=== PATIENT | female | born 1970 | race Hispanic/Latino ===

== ENCOUNTER 2017-05-06 09:20 | Inpatient (IN) | payer OTHER ==
[2017-05-06] VITALS (19 sets, daily range): BP systolic 120–164; BP diastolic 64–94
[2017-05-06] MEDS ORDERED: ACETAMINOPHEN-CODEINE ELIXIR 5 ML UDCUP ONE (09:46)
[2017-05-06 10:01] LABS: BASOPHILS % (AUTO) 0.7 % (0.0-5.0); EOSINOPHILS % (AUTO) 1.7 % (0.0-8.0); HEMATOCRIT 32.3 % (36-48); LYMPHOCYTES % (AUTO) 15.9 % (21.0-51.0); MEAN CORPUSCULAR HEMOGLOBIN 26.2 pg (27.0-33.0); MEAN CORPUSCULAR VOLUME 79.2 fL (79-99); MONOCYTES % (AUTO) 7.1 % (3.0-13.0); NEUTROPHILS % (AUTO) 74.6 % (40.0-77.0); PLATELET COUNT (AUTO) 451 K/uL (130-400); RED BLOOD CELL COUNT(AUTO) 4.08 MIL/uL (4.00-5.50); RED CELL DISTRIBUTION WIDTH 18.2 % (11.0-15.5); WHITE BLOOD COUNT (AUTO) 8.3 K/uL (4.8-10.8)
[2017-05-06 10:07] LABS: CREATININE 0.6 mg/dL (0.5-1.5); POTASSIUM 4.2 mmol/L (3.5-5.1)
[2017-05-06 10:11] LABS: ALBUMIN 3.5 g/dL (3.5-5.0); BILIRUBIN,TOTAL 0.5 mg/dL (0.2-1.0); TOTAL PROTEIN, SERUM 7.3 g/dL (6.0-8.3)
[2017-05-06 10:13] LABS: APPEARANCE,URINE Clear (CLEAR); BILIRUBIN,URINE Negative (NEGATIVE); COLOR,URINE Yellow (YELLOW); GLUCOSE, URINE (UA) Negative (NEGATIVE); KETONES,URINE Negative (NEGATIVE); LEUKOCYTE ESTERASE ,URINE Negative (NEGATIVE); NITRATE,URINE Negative (NEGATIVE); OCCULT BLOOD,URINE Negative (NEGATIVE); PROTEIN,URINE Negative (NEGATIVE); UROBILINOGEN,URINE 0.2 mg/dL (0.2-1.0)
[2017-05-06] MEDS ORDERED: MORPHINE SULFATE 4 MG/1ML SYG ONE (11:42)
[2017-05-06] MEDS ORDERED: SODIUM CHLORIDE 0.9% 1000ML 1,000 ML IV ONE (11:42)
[2017-05-06] MEDS ORDERED: LACTATED RINGERS 1000ML 1,000 ML IV ONE (12:04)
[2017-05-06] MEDS ORDERED: CEFAZOLIN SODIUM 1 GM VIAL ONE (12:09)
[2017-05-06] MEDS: CEFAZOLIN SODIUM 1 GM VIAL IVP SCH ×2 (12:15→12:45)
[2017-05-06] MEDS ORDERED: DEXAMETHASONE SOD PHOSPHATE 10MG/ML 1ML VIAL ONE (12:36)
[2017-05-06] MEDS ORDERED: GLYCOPYRROLATE 0.2 MG/ML 5 ML VIAL ONE (12:36)
[2017-05-06] MEDS ORDERED: ONDANSETRON HCL 4 MG/2 ML VIAL ONE (12:36)
[2017-05-06] MEDS ORDERED: NEOSTIGMINE METHYLSULFATE 1MG/ML IV ONE (12:36)
[2017-05-06] MEDS ORDERED: LIDOCAINE PF 2% 5ML ABBOJECT ONE (12:36)
[2017-05-06] MEDS ORDERED: FENTANYL CITRATE PF 50 MCG/1 ML 2ML VIAL ONE (12:37)
[2017-05-06] MEDS ORDERED: MIDAZOLAM HCL 1 MG/ML 2ML VIAL ONE (12:37)
[2017-05-06] MEDS ORDERED: FENTANYL CITRATE PF 50 MCG/1 ML 5ML AMP IV ONE (13:00)
[2017-05-06] MEDS ORDERED: SIMETHICONE 80 MG TAB.CHEW PO PRN (15:00)
[2017-05-06] MEDS ORDERED: HYDROCODONE/ACETAMINOPHEN 5/325 MG TAB PO PRN ×2 (15:00)
[2017-05-06] MEDS ORDERED: ONDANSETRON HCL 4 MG/2 ML VIAL IV PRN (15:00)
[2017-05-06] MEDS ORDERED: BISACODYL 10 MG SUPP.RECT RC PRN (15:00)
[2017-05-06] MEDS ORDERED: NALOXONE HCL 0.4 MG/1 ML ML IVP PRN (15:00)
[2017-05-06] MEDS ORDERED: DIPHENHYDRAMINE HCL 25 MG CAPSULE PO PRN (15:00)
[2017-05-06] MEDS ORDERED: MEPERIDINE-PF 75 MG/ML SYG IM PRN (15:00)
[2017-05-06] MEDS ORDERED: DiphenhydrAMINE HCL 50 MG/ML VIAL IV PRN (15:00)
[2017-05-06] MEDS ORDERED: MEPERIDINE 10MG/ML 50ML PCA 50 ML IV PRN (15:00)
[2017-05-06] MEDS ORDERED: PROMETHAZINE HCL 25 MG/ML 1ML AMPULE IM PRN ×2 (15:00)
[2017-05-06] MEDS ORDERED: DOCUSATE SODIUM 100 MG CAP PO PRN ×2 (15:00)
[2017-05-06] MEDS ORDERED: MEPERIDINE-PF 50 MG/ML SYG ONE (15:05)
[2017-05-06] MEDS: DEXTROSE 5 %-0.45 % NACL 1,000 ML IV PRN (21:25)
[2017-05-06] MEDS ORDERED: CALDOLOR 800MG+NS 250ML 250 ML IVPB SCH (23:00)
[2017-05-07 04:25] VITALS: BP 114/62
[2017-05-07] MEDS: DEXTROSE 5 %-0.45 % NACL 1,000 ML IV PRN (04:42)
[2017-05-07 06:42] LABS: HEMATOCRIT 29.8 % (36-48); MEAN CORPUSCULAR HEMOGLOBIN 26.8 pg (27.0-33.0); MEAN CORPUSCULAR HGB CONC 33.5 g/dL (32.0-36.0); MEAN CORPUSCULAR VOLUME 79.9 fL (79-99); PLATELET COUNT (AUTO) 410 K/uL (130-400); RED BLOOD CELL COUNT(AUTO) 3.73 MIL/uL (4.00-5.50); WHITE BLOOD COUNT (AUTO) 13.7 K/uL (4.8-10.8)
[2017-05-07 07:27] VITALS: BP 123/64
[2017-05-07] MEDS: SIMETHICONE 80 MG TAB.CHEW PO PRN ×2 (08:13→13:47)
[2017-05-07] MEDS: ACETAMINOPHEN-CODEINE 300/30MG TAB PO PRN ×2 (08:15→13:49)
[2017-05-07 11:10] VITALS: BP 113/70
[2017-05-07] MEDS ORDERED: IBUPROFEN 800 MG TAB PO SCH (15:00)
[2017-05-07 15:24] VITALS: BP 120/83
[2017-05-07] MEDS ORDERED: DOCU-116 PO (17:10)
[2017-05-07] MEDS ORDERED: TYL3 PO (17:11)
== END 2017-05-07 17:40 | disposition home or self-care (01) | DRG 743 ==
LOC: EDH 09:20 → EDHIP 11:29 → OBSVTOIN 11:29 → WSH 16:11
PROVIDERS: ADMIT Obstetrics & Gynecology; ATTEND Obstetrics & Gynecology
PROC: 0UT90ZZ Resection of Uterus, Open Approach (ICD-10-PCS; principal; 2017-05-06 12:35)
PROC: 0UT10ZZ Resection of Left Ovary, Open Approach (ICD-10-PCS; 2017-05-06 12:35)
PROC: 0UT60ZZ Resection of Left Fallopian Tube, Open Approach (ICD-10-PCS; 2017-05-06 12:35)
DX: N92.1 Excessive and frequent menstruation with irregular cycle (principal); G89.29 Other chronic pain; N73.6 Female pelvic peritoneal adhesions (postinfective); R10.2 Pelvic and perineal pain
CPT/HCPCS: 36415; 80053; 81003; 81025; 85025; 85027; 86850; 86900; 86901; 88307; A4218; A4344; J0690; J1100; J1741; J2001; J2175; J2250; J2270; J2405; J2710; J3010; J3490; J7030; J7120

== ENCOUNTER 2018-08-03 00:40 | Emergency (ER) | payer OTHER ==
[~2018-08-03 00:40] MED LIST: DOCU-116 PO; TYL3 PO
== END 2018-08-03 01:32 | disposition home or self-care (01) ==
LOC: EDH 00:40
DX: M54.2 Cervicalgia (principal); J45.909 Unspecified asthma, uncomplicated; Z88.1 Allergy status to other antibiotic agents; Z88.6 Allergy status to analgesic agent; Z90.710 Acquired absence of both cervix and uterus; Y04.2XXA Assault by strike against or bumped into by another person, initial encounter; Y93.89 Activity, other specified; Y92.89 Other specified places as the place of occurrence of the external cause; Y99.8 Other external cause status
CPT/HCPCS: 99281

== ENCOUNTER 2020-12-10 10:31 | Emergency (ER) | payer BC, OTHER ==
[~2020-12-10] VITALS: Ht 160 cm; Wt 79.4 kg
[2020-12-10 10:32] VITALS: BP 122/56
[2020-12-10] MEDS ORDERED: DiphenhydrAMINE HCL 50 MG/ML VIAL ONE (10:56)
[2020-12-10] MEDS ORDERED: SOLU-MEDROL 125MG VIAL ONE (10:56)
[2020-12-10] MEDS ORDERED: SOLU-MEDROL 125MG VIAL IVP ONE (11:30)
[2020-12-10] MEDS ORDERED: DiphenhydrAMINE HCL 50 MG/ML VIAL IV ONE (11:30)
[2020-12-10] MEDS ORDERED: PRED20TA3 PO (12:26)
[2020-12-10] MEDS ORDERED: DIPH50 PO (12:26)
== END 2020-12-10 12:47 | disposition home or self-care (01) ==
LOC: EDH 10:31
DX: L50.0 Allergic urticaria (principal); T50.995A Adverse effect of other drugs, medicaments and biological substances, initial encounter; E66.9 Obesity, unspecified; J45.909 Unspecified asthma, uncomplicated; Z79.52 Long term (current) use of systemic steroids; Z79.899 Other long term (current) drug therapy; Z88.1 Allergy status to other antibiotic agents; Z88.6 Allergy status to analgesic agent; Z68.31 Body mass index [BMI] 31.0-31.9, adult; Y92.89 Other specified places as the place of occurrence of the external cause
CPT/HCPCS: 96374; 96375; 99284; J1200; J2930

== ENCOUNTER 2022-05-08 15:34 | Emergency (ER) | payer BC ==
[~2022-05-08] VITALS: Ht 160 cm; Wt 79.4 kg
[~2022-05-08 15:34] MED LIST changes: +DIPH50 PO; +PRED20TA3 PO
[2022-05-08] MEDS ORDERED: 0.9%NACL 1000ML 1,000 ML IV ONE (17:00)
[2022-05-08 17:20] LABS: BASOPHILS % (AUTO) 0.8 % (0.0-5.0); EOSINOPHILS % (AUTO) 3.1 % (0.0-8.0); HEMATOCRIT 43.4 % (36-48); LYMPHOCYTES % (AUTO) 20.6 % (21.0-51.0); MEAN CORPUSCULAR HEMOGLOBIN 27.9 pg (27.0-33.0); MEAN CORPUSCULAR HGB CONC 32.5 g/dL (32.0-36.0); MEAN CORPUSCULAR VOLUME 85.8 fL (79-99); MONOCYTES % (AUTO) 5.7 % (3.0-13.0); NEUTROPHILS % (AUTO) 69.5 % (40.0-77.0); PLATELET COUNT (AUTO) 278 K/uL (130-400); RED BLOOD CELL COUNT(AUTO) 5.06 MIL/uL (4.00-5.50); RED CELL DISTRIBUTION WIDTH 13.1 % (11.0-15.5); WHITE BLOOD COUNT (AUTO) 9.5 K/uL (4.8-10.8)
[2022-05-08 17:24] LABS: APPEARANCE,URINE CLEAR (CLEAR); BILIRUBIN,URINE NEGATIVE (NEGATIVE); COLOR,URINE LIGHT-YELLOW (YELLOW); GLUCOSE, URINE (UA) NEGATIVE (NEGATIVE); KETONES,URINE NEGATIVE (NEGATIVE); LEUKOCYTE ESTERASE ,URINE NEGATIVE Leu/uL (NEGATIVE); NITRATE,URINE NEGATIVE (NEGATIVE); OCCULT BLOOD,URINE NEGATIVE (NEGATIVE); PH,URINE 5.5 (5.0-8.0); PROTEIN,URINE NEGATIVE (NEGATIVE); UROBILINOGEN,URINE 0.2 mg/dL (0.2-1.0)
[2022-05-08 17:36] LABS: BACTERIA,URINE RARE /HPF (None Seen); MUCUS,URINE RARE LPF (None Seen); SQUAMOUS EPITHELIAL CELL,UR RARE /HPF (0-2); WBC,URINE 0-1 /HPF (0-1)
[2022-05-08 18:33] LABS: CREATININE 0.7 mg/dL (0.5-1.5); POTASSIUM 4.2 mmol/L (3.5-5.1)
[2022-05-08 18:37] LABS: ALBUMIN 3.8 g/dL (3.5-5.0); TOTAL PROTEIN, SERUM 7.3 g/dL (6.0-8.3)
[2022-05-08] MEDS ORDERED: PANT40TA55 PO (19:12)
== END 2022-05-08 19:24 | disposition home or self-care (01) ==
LOC: EDH 15:34
DX: K29.70 Gastritis, unspecified, without bleeding (principal); Z90.710 Acquired absence of both cervix and uterus; J45.909 Unspecified asthma, uncomplicated; Z79.52 Long term (current) use of systemic steroids; Z88.1 Allergy status to other antibiotic agents; Z88.6 Allergy status to analgesic agent
CPT/HCPCS: 99285; 74176; 96360; 76705; 96361; 82550; 84484; 80053; 83690; 85025; 81001; 36415; J7030